=== PATIENT | male | born 1935 | race Caucasian/White ===

== ENCOUNTER 2024-05-19 16:37 | Outpatient (REF) | payer MEDICARE, SELFPAY ==
[2024-05-22 20:28] LABS: Norovirus Stool PCR DETECTED
== END 2024-05-19 16:38 | disposition home or self-care (01) ==
LOC: HO.HSH3E 16:37
PROVIDERS: Visit Provider Nurse Practitioner
DX: R19.7 Diarrhea, unspecified (principal)
CPT/HCPCS: 36415

== ENCOUNTER 2024-07-28 16:29 | Outpatient (REF) | payer MEDICARE, SELFPAY ==
[2024-07-28 16:32] LABS: MANUAL DIFF FLAG NO
[2024-07-28 16:40] LABS: Basophils Percent Auto 0.4 % (0-2); Eosinophils Percent Auto 0.6 % (0-4); Hematocrit 39.6 % (42.0-52.0); Hemoglobin 12.3 g/dl (14.0-18.0); Imm Gran Abs Auto 0.01 X10*3/uL (0.00-0.03); Imm Gran Pct Auto 0.1 % (0.0-0.4); Lymphocytes Absolute Auto 1.2 X10*3/uL (1.2-4.9); Lymphocytes Percent Auto 16.8 % (20-40); Mean Corpuscular HGB Conc 31.1 g/dl (31.0-36.0); Mean Corpuscular Hemoglobin 29.6 pg (27.0-33.0); Mean Corpuscular Volume 95.4 fL (80.0-98.0); Mean Platelet Volume 10.6 fL (9.4-12.4); Monocytes Absolute Auto 0.9 X10*3/uL (0.1-1.2); Monocytes Percent Auto 12.3 % (2-11); Neutrophils Absolute Auto 4.9 x10*3/uL (2.0-8.3); Neutrophils Percent Auto 69.8 % (45-73); Platelet Count 216 X10*3/uL (160-400); Red Blood Count 4.15 X10*6/uL (4.60-5.80); Red Cell Distribution Width 21.7 % (11.0-16.0); White Blood Count 7.1 X10*3/uL (4.8-10.8)
[2024-07-28 16:55] LABS: Anion Gap 14 (12-20); Blood Urea Nitrogen 40 mg/dL (9-16); Calcium 8.7 mg/dL (8.4-10.2); Carbon Dioxide 21 mmol/L (22-29); Chloride 114 mmol/L (96-108); Estimated Glomerular Filt Rate 56; Glucose Random 122 mg/dL (60-115); Potassium 4.1 mmol/L (3.3-5.1); Sodium 145 mmol/L (135-145)
== END 2024-07-28 16:30 | disposition home or self-care (01) ==
LOC: HO.HVNA 16:29
PROVIDERS: Visit Provider Nurse Practitioner
DX: R25.1 Tremor, unspecified (principal)
CPT/HCPCS: 36415; 80048; 84443; 85025

== ENCOUNTER 2024-08-02 09:29 | Outpatient (REF) | payer MEDICARE, SELFPAY ==
[2024-08-02 09:42] LABS: OBS Int Ctl Valid YES; OBS1 NEGATIVE (NEGATIVE)
== END 2024-08-02 09:30 | disposition home or self-care (01) ==
LOC: HO.HSH3E 09:29
PROVIDERS: Visit Provider Nurse Practitioner
DX: K62.5 Hemorrhage of anus and rectum (principal)
CPT/HCPCS: 82272

== ENCOUNTER 2024-08-04 14:44 | Outpatient (REF) | payer MEDICARE, SELFPAY ==
[2024-08-04 15:50] LABS: CDiff Gene PCR NEGATIVE (Negative)
== END 2024-08-04 14:45 | disposition home or self-care (01) ==
LOC: HO.HSH3E 14:44
PROVIDERS: Visit Provider Nurse Practitioner Acute Care
DX: R19.5 Other fecal abnormalities (principal); R19.7 Diarrhea, unspecified
CPT/HCPCS: 87493

== ENCOUNTER 2024-08-08 14:28 | Outpatient (REF) | payer MEDICARE, SELFPAY ==
[2024-08-08 14:39] LABS: OBS1 NEGATIVE (NEGATIVE)
[2024-08-08 14:40] LABS: OBS Int Ctl Valid YES
[2024-08-08 15:36] LABS: CDiff Gene PCR NEGATIVE (Negative)
== END 2024-08-08 14:29 | disposition home or self-care (01) ==
LOC: HO.HSH3E 14:28
PROVIDERS: Visit Provider Nurse Practitioner Acute Care
DX: R19.5 Other fecal abnormalities (principal)
CPT/HCPCS: 82272; 87493

== ENCOUNTER 2024-08-23 07:37 | Outpatient (REF) | payer MEDICARE, SELFPAY ==
--- OUTSIDE RECORDS SUMMARY | 2024-08-23 07:43 | XMS_ITS | Clinical Summary ---
Author Organization [email or web address] Address [address] [place] [address] Care Team Providers Care Agronomy Instructor Name Role Phone Unavailable Primary Care Provider Unavailabl e Social History Tobacco Use Types Packs/Day Years Used Date Smoking Tobacco: Never Assessed Sex and Gender Information Value Date Recorded Sex Assigned at Male 06/14/2024 11:57 AM EST Legal Sex Male 11:56 AM EST Gender Identity Male 06/14/2024 11:57 AM EST Sexual Orientation Straight 06/14/2024 11 :57 AM EST Plan of Treatment Upcoming Encounters Date Type Department Care Team ([facility] st Contact Info) Description 08/31/2024 8:00 AM EDT Office Visit [facility] [address] [place] [address] Haider Roberts, DMD [address] [place] [address] Health Maintenance Due Date Last Done Comments Depression Screening 1935 Lipid Panel 1935 SDOH Screening 1935 Alcohol/Substance Use Screening 1947 Tobacco Screening 1947 DTaP/Tdap/Td Vaccines (1 - Tdap) 12/22/1954 Pneumococcal Vaccine: 50+ Ye ars (1 of 1 - PCV) 12/22/1985 Zoster Vaccines (1 of 2) 12/22/1985 RSV Patients and Pa tients Aged 60 years or older (1 - 1-dose 75+ series) 12/22/2010 COVID-19 Vaccine ( - 2023-2 5 season) 2023 Influenza Vaccine (#1) 2023 HIB Vaccines Aged Out No longer eligi ble based on patient's age to complete this topic HPV Vaccines Aged Out No longer eligi ble based on patient's age to complete this topic Hepatitis A Vaccines Aged Out No long er eligible based on patient's age to complete this topic Hepatitis B Vaccines Aged Out No long er eligible based on patient's age to complete this topic IPV Vaccines Aged Out No longer eligi ble based on patient's age to complete this topic Meningococcal Vaccine Aged Out No kate shankar eligible based on patient's age to complete this topic RSV under 20 months Aged Out No longe r eligible based on patient's age to complete this topic Rotavirus Vaccines Aged Out No longer eligible based on patient's age to complete this topic
[2024-08-23 08:16] LABS: Alanine Aminotransferase 10 U/L (0-40); Albumin Level 3.1 g/dL (3.5-5.0); Alkaline Phosphatase 99 U/L (39-117); Aspartate Amino Transferase 21 U/L (5-37); Bilirubin Direct < 0.2 mg/dL (0.0-0.5); Bilirubin Total 0.2 mg/dL (0.0-1.0); Total Protein 6.2 g/dL (6.5-8.0)
== END 2024-08-23 07:38 | disposition home or self-care (01) ==
LOC: HO.HSH3E 07:37
PROVIDERS: Visit Provider Nurse Practitioner Acute Care
DX: E78.5 Hyperlipidemia, unspecified (principal)
CPT/HCPCS: 36415; 80076

== ENCOUNTER 2024-09-20 06:27 | Outpatient (REF) | payer MEDICARE, SELFPAY ==
[2024-09-20 06:55] LABS: Anion Gap 11 (12-20); Blood Urea Nitrogen 39 mg/dL (9-16); Calcium 8.8 mg/dL (8.4-10.2); Carbon Dioxide 27 mmol/L (22-29); Chloride 114 mmol/L (96-108); Estimated Glomerular Filt Rate 57; Glucose Random 89 mg/dL (60-115); Sodium 148 mmol/L (135-145)
[2024-09-20 07:03] LABS: Valproate < 12.5 mcg/mL (50.0-100.0)
== END 2024-09-20 06:28 | disposition home or self-care (01) ==
LOC: HO.HSH3E 06:27
PROVIDERS: Visit Provider Nurse Practitioner Acute Care
DX: Z79.899 Other long term (current) drug therapy (principal)
CPT/HCPCS: 36415; 80048; 80164

== ENCOUNTER 2024-09-21 07:03 | Outpatient (REF) | payer MEDICARE, SELFPAY ==
[2024-09-21 07:33] LABS: Alanine Aminotransferase 10 U/L (0-40); Albumin Level 3.4 g/dL (3.5-5.0); Alkaline Phosphatase 95 U/L (39-117); Aspartate Amino Transferase 19 U/L (5-37); Bilirubin Direct < 0.2 mg/dL (0.0-0.5); Bilirubin Total 0.2 mg/dL (0.0-1.0); Total Protein 6.5 g/dL (6.5-8.0)
== END 2024-09-21 07:04 | disposition home or self-care (01) ==
LOC: HO.HSH3E 07:03
PROVIDERS: Visit Provider Nurse Practitioner
DX: D50.9 Iron deficiency anemia, unspecified (principal)
CPT/HCPCS: 36415; 80076

== ENCOUNTER 2024-10-12 06:41 | Outpatient (REF) | payer MEDICARE, SELFPAY ==
--- OUTSIDE RECORDS SUMMARY | 2024-10-12 06:45 | XMS_ITS | Clinical Summary ---
Author Organization [employer] Address [address] [place] [address] [place] [address] Care Team Providers Care Parquet Floor Layer'S Helper Name Role Phone Unavailable Primary Care Provider Unavailabl e Allergies Active Allergy Reactions Criticality Noted Date Comments Fish Allergy 08/31/2024 Medications traZODone (Desyrel) 50 MG tablet 50 mg. 06/08/2024 Active acetaminophen (Tylenol) 325 MG tablet Take 325 mg by mouth. Active senna-docusate sodium (Senokot-S) 8.6-50 MG tablet Take 1 tablet by mouth Once per day. Active polyethylene glycol, PEG, 3350 (Miralax) 17 g packet Take by mouth. Active loperamide (Imodium) 2 MG capsule Take 2 mg by mouth if needed in the morning, at noon, in the evening, and at bedtime for diarrhea. Active guaiFENesin 200 MG tablet Take 400 mg by mouth every 4 (four) hours if needed for cough. Active ferrous sulfate 325 (65 Fe) MG tablet Take 220 mg by mouth with breakfast. Active cholecalciferol (Vitamin D-3) 25 MCG (1000 UT) capsule Take 1,000 Units by mouth Once per day. Active lactulose (Chronulac) 10 GM/15ML solution Take 20 g by mouth 3 times daily. Active mirtazapine (Remeron) 7.5 MG tablet Take 7.5 mg by mouth at bedtime. Active Active Problems No known active problems Encounters Date Type Department Care Team Description 09/16/2024 2:30 PM EDT Office Visit [facility] [address] [place], [place] [phone] Ninoska Ramirez 08/31/2024 3:00 PM EDT Office Visit [facility] [address] [place] [address] Haider Roberts DMD from Last 3 Months Social History Tobacco Use Types Packs/Day Years Used Date Smoking Tobacco: Unknown Tobacco Cessation:Counseling Given: Not Answered Alcohol Use Standard Drinks/Week Comments Defer 0 (1 standard drink = 0.6 oz pur e alcohol) Sex and Gender Information Value Date Recorded Sex Assigned at Male 06/14/2024 11:57 AM EST Legal Sex Male 11:56 AM EST Gender Identity Male 06/14/2024 11:57 AM EST Sexual Orientation Straight 06/14/2024 11 :57 AM EST Plan of Treatment Health Maintenance Due Date Last Done Comments Dental X-Ray: Bitewings 1935 Dental X-Ray: Full Mouth 1935 Depression Screening 1935 Lipid Panel 1935 SDOH Screening 1935 Alcohol/Substance Use Screening 1947 DTaP/Tdap/Td Vaccines (1 - Tdap) 12/22/1954 Pneumococcal Vaccine: 50+ Ye ars (1 of 1 - PCV) 12/22/1985 Zoster Vaccines (1 of 2) 12/22/1985 RSV Patients and Pa tients Aged 60 years or older (1 - 1-dose 75+ series) 12/22/2010 COVID-19 Vaccine ( - 2023-2 5 season) 2023 Influenza Vaccine (Season Ended) 2024 Dental Oral Exam 03/04/2025 08/31/2024 Dental Prophylaxis 03/20/2025 09/16/2024 Tobacco Screening 09/16/2025 09/16/2024 HIB Vaccines Aged Out No longer eligi [...] patient's age to complete this topic Meningococcal B Vaccine Aged Out No l onger eligible based on patient's age to complete this topic Meningococcal Vaccine Aged Out No kate shankar eligible based on patient's age to complete this topic RSV under 20 months Aged Out No longe r eligible based on patient's age to complete this topic Rotavirus Vaccines Aged Out No longer eligible based on patient's age to complete this topic Procedures Procedure Name Priority Date/Time Associated Diagnosis Comments ORAL HYGIENE INSTRUCTIONS Routine 2024 2:30 PM EDT PROPHYLAXIS - ADULT Routine 09/16/2024 2 :30 PM EDT INTRAORAL - PERIAPICAL EACH ADDITIONAL RADIOGRAPHIC IMAGE Routine 08/31/2024 3:00 PM EDT INTRAORAL - PERIAPICAL EACH ADDITIONAL RADIOGRAPHIC IMAGE Routine 08/31/2024 3:00 PM EDT INTRAORAL - PERIAPICAL EACH ADDITIONAL RADIOGRAPHIC IMAGE Routine 08/31/2024 3:00 PM EDT INTRAORAL - PERIAPICAL EACH ADDITIONAL RADIOGRAPHIC IMAGE Routine 08/31/2024 3:00 PM EDT INTRAORAL - PERIAPICAL EACH ADDITIONAL RADIOGRAPHIC IMAGE Routine 08/31/2024 3:00 PM EDT INTRAORAL - PERIAPICAL EACH ADDITIONAL RADIOGRAPHIC IMAGE Routine 08/31/2024 3:00 PM EDT INTRAORAL - PERIAPICAL FIRST RADIOGRAPHIC IMAGE Routine 08/31/2024 3:00 PM EDT BEHAVIOR MANAGEMENT Routine 08/31/2024 3 :00 PM EDT FULL MOUTH DEBRIDEMENT TO ENABLE A COMPREHENSIVE ORAL EVALUATION AND DIAGNOSIS ON A SUBSEQUENT VISIT Routine 08/31/2024 3:00 PM EDT COMPREHENSIVE ORAL EVALUATION - NEW OR ESTABLISHED PATIENT Routine 08/31/2024 3:00 PM EDT 13 FIXED PARTIAL DENTURE - ABUTMENT CROWN Routine 08/31/2024 12:00 AM EDT 11 FIXED PARTIAL DENTURE - ABUTMENT CROWN Routine 08/31/2024 12:00 AM EDT 12 FIXED PARTIAL DENTURE - PONTIC Routine 08/31/2024 12:00 AM EDT 32 DO AMALGAM FILLING Routine 08/31/2024 12:00 AM EDT 19 LO AMALGAM FILLING Routine 08/31/2024 12:00 AM EDT 17 O AMALGAM FILLING Routine 08/31/2024 12:00 AM EDT 4 PFM CROWN Routine 08/31/2024 12:00 AM EDT 14 LO AMALGAM FILLING Routine 08/31/2024 12:00 AM EDT 15 O AMALGAM FILLING Routine 08/31/2024 12:00 AM EDT 2 LO AMALGAM FILLING Routine 08/31/2024 12:00 AM EDT from Last 3 Months
[2024-10-12 07:33] LABS: Valproate 15.1 mcg/mL (50.0-100.0)
[2024-10-12 17:12] LABS: Basophils Absolute Auto 0.1 X10*3/uL (0.0-0.2); Basophils Percent Auto 0.3 % (0-2); Eosinophils Absolute Auto 0.1 X10*3/uL (0.0-0.4); Eosinophils Percent Auto 0.3 % (0-4); Hematocrit 47.9 % (42.0-52.0); Hemoglobin 15.3 g/dl (14.0-18.0); Imm Gran Abs Auto 0.09 X10*3/uL (0.00-0.03); Imm Gran Pct Auto 0.6 % (0.0-0.4); Lymphocytes Absolute Auto 1.2 X10*3/uL (1.2-4.9); Lymphocytes Percent Auto 7.3 % (20-40); MANUAL DIFF FLAG SCAN; Mean Corpuscular HGB Conc 31.9 g/dl (31.0-36.0); Mean Corpuscular Hemoglobin 32.1 pg (27.0-33.0); Mean Corpuscular Volume 100.4 fL (80.0-98.0); Mean Platelet Volume 12.1 fL (9.4-12.4); Monocytes Absolute Auto 1.6 X10*3/uL (0.1-1.2); Monocytes Percent Auto 9.8 % (2-11); Neutrophils Percent Auto 81.7 % (45-73); Platelet Count 181 X10*3/uL (160-400); Red Blood Count 4.77 X10*6/uL (4.60-5.80); Red Cell Distribution Width 17.3 % (11.0-16.0); SCAN SMEAR FLAG 1; White Blood Count 15.9 X10*3/uL (4.8-10.8)
[2024-10-12 17:40] LABS: SLIDE REVIEW VERIFIED
[2024-10-12 17:41] LABS: Anion Gap 17 (12-20); Blood Urea Nitrogen 43 mg/dL (9-16); Calcium 9.4 mg/dL (8.4-10.2); Carbon Dioxide 21 mmol/L (22-29); Chloride 119 mmol/L (96-108); Estimated Glomerular Filt Rate 45; Glucose Random 162 mg/dL (60-115); Potassium 4.1 mmol/L (3.3-5.1); Sodium 153 mmol/L (135-145)
== END 2024-10-12 06:42 | disposition home or self-care (01) ==
LOC: HO.HSH3E 06:41
PROVIDERS: Nurse Practitioner; Visit Provider Nurse Practitioner Acute Care
DX: J18.9 Pneumonia, unspecified organism (principal)
CPT/HCPCS: 36415; 80048; 80164; 85025

== ENCOUNTER 2024-10-26 06:33 | Outpatient (REF) | payer MEDICARE, SELFPAY ==
--- OUTSIDE RECORDS SUMMARY | 2024-10-26 06:37 | XMS_ITS | Clinical Summary ---
Author Organization [employer] Address [address] [place] [address] [place] [address] Care Team Providers Care Youth Manager Name Role Phone Unavailable Primary Care Provider [...] Description 09/16/2024 2:30 PM EDT Office Visit [facility] [address] [place], [place] [phone] Ninoska Ramirez 08/31/2024 3:00 PM EDT Office Visit [facility] [address] [place] [address] Haider Roberts DMD from Last 3 Months [...]
== END 2024-10-26 06:34 | disposition home or self-care (01) ==
LOC: HO.HSH3E 06:33
PROVIDERS: Visit Provider Nurse Practitioner Acute Care
DX: Z79.899 Other long term (current) drug therapy (principal)
CPT/HCPCS: 36415; 80164

== ENCOUNTER 2024-12-16 16:29 | Outpatient (REF) | payer MEDICARE, SELFPAY ==
--- OUTSIDE RECORDS SUMMARY | 2024-12-16 16:31 | XMS_ITS | Clinical Summary ---
Author Organization [employer] Address [address] [place] [address] Care Team Providers Care Sales Account Leader Name Role Phone Unavailable Primary Care Provider [...] Description 09/16/2024 2:30 PM EDT Office Visit [facility] [address] [place] [address] Ninoska Ramirez from Last 3 Months Social History Tobacco [...] Upcoming Encounters Date Type Department Care Team (Late st Contact Info) Description 12/21/2024 8:00 AM EDT Office Visit [facility] [address] [place] [address] Gaby Gordon Health Maintenance Due Date Last Done Comments [...] 2023-2 5 season) 2023 Influenza Vaccine (#1) 2024 Dental Oral Exam 03/04/2025 08/31/2024 Dental [...] ADULT Routine 09/16/2024 2 :30 PM EDT COMPREHENSIVE ORAL EVALUATION - NEW OR ESTABLISHED PATIENT Routine 08/31/2024 3:00 PM EDT from Last 3 Months or Most Recently Relevant to Health Maintenance
[2024-12-16 16:35] LABS: Hematocrit 36.7 % (42.0-52.0); Hemoglobin 12.5 g/dl (14.0-18.0); Imm Gran Abs Auto 0.02 X10*3/uL (0.00-0.03); Imm Gran Pct Auto 0.4 % (0.0-0.4); Lymphocytes Absolute Auto 1.7 X10*3/uL (1.2-4.9); MANUAL DIFF FLAG NO; Mean Corpuscular HGB Conc 34.1 g/dl (31.0-36.0); Mean Corpuscular Hemoglobin 34.2 pg (27.0-33.0); Mean Corpuscular Volume 100.3 fL (80.0-98.0); NRBC Abs Auto 0.000 X10*3/uL (0.0-0.012); NRBC Pct Auto 0.0 /100WBC (0.0-0.2); Platelet Count 156 X10*3/uL (160-400); Red Blood Count 3.66 X10*6/uL (4.60-5.80); White Blood Count 5.4 X10*3/uL (4.8-10.8)
[2024-12-16 19:10] LABS: Alanine Aminotransferase 10 U/L (0-40); Albumin Level 3.5 g/dL (3.5-5.0); Alkaline Phosphatase 83 U/L (39-117); Anion Gap 15 (12-20); Aspartate Amino Transferase 17 U/L (5-37); Blood Urea Nitrogen 43 mg/dL (9-16); Calcium 9.0 mg/dL (8.4-10.2); Carbon Dioxide 25 mmol/L (22-29); Chloride 109 mmol/L (96-108); Estimated Glomerular Filt Rate 46; Potassium 4.6 mmol/L (3.3-5.1); Sodium 144 mmol/L (135-145); Total Protein 6.4 g/dL (6.5-8.0)
[2024-12-16 22:37] LABS: Appearance Urine Clear; Glucose Urine UA Negative (Negative); PH 5.5 (5.0-9.0); Specific Gravity - Urine 1.025 (1.005-1.025); UMIC TRIGGER UACC YES
[2024-12-16 22:48] LABS: UACC Culture Trigger YES
== END 2024-12-16 16:30 | disposition home or self-care (01) ==
LOC: HO.HSH3E 16:29
PROVIDERS: Visit Provider Nurse Practitioner
DX: R50.9 Fever, unspecified (principal)
CPT/HCPCS: 36415; 80053; 81001; 85025; 87086; 87088; 87186

== ENCOUNTER 2024-12-17 08:23 | Outpatient (REF) | payer MEDICARE, SELFPAY ==
[2024-12-17 08:32] LABS: MANUAL DIFF FLAG NO
[2024-12-17 08:38] LABS: Hematocrit 36.3 % (42.0-52.0); Hemoglobin 12.0 g/dl (14.0-18.0); Imm Gran Abs Auto 0.01 X10*3/uL (0.00-0.03); Imm Gran Pct Auto 0.2 % (0.0-0.4); Lymphocytes Absolute Auto 1.1 X10*3/uL (1.2-4.9); Mean Corpuscular HGB Conc 33.1 g/dl (31.0-36.0); Mean Corpuscular Hemoglobin 33.2 pg (27.0-33.0); Mean Corpuscular Volume 100.6 fL (80.0-98.0); NRBC Abs Auto 0.000 X10*3/uL (0.0-0.012); NRBC Pct Auto 0.0 /100WBC (0.0-0.2); Platelet Count 157 X10*3/uL (160-400); Red Blood Count 3.61 X10*6/uL (4.60-5.80); White Blood Count 5.1 X10*3/uL (4.8-10.8)
[2024-12-17 09:00] LABS: Alanine Aminotransferase 9 U/L (0-40); Albumin Level 3.2 g/dL (3.5-5.0); Alkaline Phosphatase 77 U/L (39-117); Anion Gap 10 (12-20); Aspartate Amino Transferase 18 U/L (5-37); Blood Urea Nitrogen 41 mg/dL (9-16); Calcium 9.2 mg/dL (8.4-10.2); Carbon Dioxide 25 mmol/L (22-29); Chloride 111 mmol/L (96-108); Estimated Glomerular Filt Rate 53; Potassium 4.2 mmol/L (3.3-5.1); Sodium 142 mmol/L (135-145); Total Protein 5.8 g/dL (6.5-8.0)
== END 2024-12-17 08:24 | disposition home or self-care (01) ==
LOC: HO.HSH3E 08:23
PROVIDERS: Visit Provider Nurse Practitioner
DX: Z13.89 Encounter for screening for other disorder (principal)
CPT/HCPCS: 36415; 80053; 85025

== ENCOUNTER 2024-12-19 07:14 | Outpatient (REF) | payer MEDICARE, SELFPAY ==
[2024-12-19 07:18] LABS: MANUAL DIFF FLAG NO
[2024-12-19 07:54] LABS: Hematocrit 39.5 % (42.0-52.0); Hemoglobin 12.7 g/dl (14.0-18.0); Imm Gran Abs Auto 0.01 X10*3/uL (0.00-0.03); Imm Gran Pct Auto 0.2 % (0.0-0.4); Lymphocytes Absolute Auto 1.3 X10*3/uL (1.2-4.9); Mean Corpuscular HGB Conc 32.2 g/dl (31.0-36.0); Mean Corpuscular Hemoglobin 33.0 pg (27.0-33.0); Mean Corpuscular Volume 102.6 fL (80.0-98.0); NRBC Abs Auto 0.000 X10*3/uL (0.0-0.012); NRBC Pct Auto 0.0 /100WBC (0.0-0.2); Platelet Count 163 X10*3/uL (160-400); Red Blood Count 3.85 X10*6/uL (4.60-5.80); White Blood Count 6.4 X10*3/uL (4.8-10.8)
[2024-12-19 08:23] LABS: Alanine Aminotransferase 12 U/L (0-40); Albumin Level 3.4 g/dL (3.5-5.0); Alkaline Phosphatase 83 U/L (39-117); Anion Gap 16 (12-20); Aspartate Amino Transferase 20 U/L (5-37); Blood Urea Nitrogen 38 mg/dL (9-16); Calcium 8.6 mg/dL (8.4-10.2); Carbon Dioxide 22 mmol/L (22-29); Chloride 111 mmol/L (96-108); Estimated Glomerular Filt Rate 51; Potassium 4.5 mmol/L (3.3-5.1); Sodium 144 mmol/L (135-145); Total Protein 6.4 g/dL (6.5-8.0)
== END 2024-12-19 07:15 | disposition home or self-care (01) ==
LOC: HO.HSH3E 07:14
PROVIDERS: Visit Provider Nurse Practitioner
DX: N39.0 Urinary tract infection, site not specified (principal)
CPT/HCPCS: 36415; 80053; 85025

== ENCOUNTER 2025-02-15 06:38 | Outpatient (REF) | payer MEDICARE, SELFPAY ==
[2025-02-15 06:40] LABS: MANUAL DIFF FLAG NO
--- OUTSIDE RECORDS SUMMARY | 2025-02-15 06:41 | XMS_ITS | Clinical Summary ---
Author Organization [employer] Address [address] [place] [address] [address] [place] [address] Care Team Providers Care Career Services Director Name Role Phone Unavailable Primary Care Provider [...] 7.5 mg by mouth at bedtime. Active Melatonin 3-10 MG tablet Take 3 mg by mouth at bedtime. Active divalproex sprinkle (Depakote Sprinkle) [address] capsule Take 125 mg by mouth in the morning and 125 mg at noon and 125 mg in the evening. Active Active Problems No known active problems Encounters Date Type Department Care Team Description 01/18/2025 2:30 PM EDT Office Visit [facility] [address] [place], [place] [phone] Gaby Gordon Subgingival dental calculus (Primary Dx); Supragingival dental calculus; Dental plaque from Last 3 Months Social History Tobacco [...] (1 - Tdap) 12/22/1954 Pneumococcal Vaccine: 50+ Years (1 of 1 - PCV) 12/22/1985 Zoster Vaccines (1 of 2) 12/22/1985 RSV Patients and Patients Aged 60 years or older (1 - 1-dose 75+ series) 12/22/2010 COVID-19 Vaccine (3 - 2024-2 6 season) 2024 07/07/2020, 06/14/2020 Influenza Vaccine (#1) 2024 Dental Oral Exam 03/04/2025 08/31/2024 Dental Prophylaxis 03/20/2025 09/16/2024 Tobacco Screening 01/18/2026 01/18/2025 HIB Vaccines Aged Out No longer eligi [...] Procedure Name Priority Date/Time Associated Diagnosis Comments SCALING IN PRESENCE OF MOD-SEVERE GING INFL - FULL MOUTH, AFTER ORAL EVAL Routine 01/18/2025 2:30 PM EDT Subgingival dental calculus Supragingival dental calculus Dental plaque TOPICAL APPLICATION OF FLUORIDE VARNISH Routine 01/18/2025 2:30 PM EDT PROPHYLAXIS - ADULT Routine 09/16/2024 2 :30 PM EDT COMPREHENSIVE ORAL EVALUATION - NEW OR ESTABLISHED PATIENT Routine 08/31/2024 3:00 PM EDT from Last 3 Months or Most Recently Relevant to Health Maintenance
[2025-02-15 07:01] LABS: Hematocrit 38.7 % (42.0-52.0); Hemoglobin 12.9 g/dl (14.0-18.0); Imm Gran Abs Auto 0.01 X10*3/uL (0.00-0.03); Imm Gran Pct Auto 0.2 % (0.0-0.4); Lymphocytes Absolute Auto 1.9 X10*3/uL (1.2-4.9); Mean Corpuscular HGB Conc 33.3 g/dl (31.0-36.0); Mean Corpuscular Hemoglobin 34.2 pg (27.0-33.0); Mean Corpuscular Volume 102.7 fL (80.0-98.0); NRBC Abs Auto 0.000 X10*3/uL (0.0-0.012); NRBC Pct Auto 0.0 /100WBC (0.0-0.2); Platelet Count 151 X10*3/uL (160-400); Red Blood Count 3.77 X10*6/uL (4.60-5.80); White Blood Count 6.1 X10*3/uL (4.8-10.8)
[2025-02-15 07:19] LABS: Iron 58 mcg/dL (45-160); Percent Iron Saturation 24 % (15-50); Total Iron Binding Capacity 242 mcg/dL (228-428); Unsaturated Iron Binding 184 ug/dL
[2025-02-15 07:33] LABS: Ferritin 20 ng/mL (20-250)
[2025-02-15 07:47] LABS: Folate 12.9 ng/mL (> or = 4.0); Vitamin B12 995 pg/mL (200-900)
== END 2025-02-15 06:39 | disposition home or self-care (01) ==
LOC: HO.HSH3E 06:38
PROVIDERS: Visit Provider Nurse Practitioner
DX: D64.9 Anemia, unspecified (principal); F03.90 Unspecified dementia, unspecified severity, without behavioral disturbance, psychotic disturbance, mood disturbance, and anxiety
CPT/HCPCS: 36415; 80164; 82607; 82728; 82746; 83540; 85025